=== PATIENT | male | born 1935 | race Caucasian/White ===

== ENCOUNTER 2019-05-14 09:57 | Outpatient (CLI) | payer MEDICARE ==
--- NOTE | 2019-05-14 13:03 | MRI ---
EXAM: MRI of the pelvis/prostate without and with contrast HISTORY: Prostate cancer COMPARISON: None TECHNIQUE: Multiplanar multisequence MR images were obtained of the pelvis without and with IV contra st. Evaluation of this exam was performed with a [employer] workstation. FINDINGS: Prostate volume: 102 cc Central gland: Severe hypertrophy of the central gland consistent with BPH. There is a 6 mm area of l ow T2 signal in the right peripheral zone of the prostate near the apex. Peripheral zone: There is restricted diffusion and low signal on the ADC map in the region where the 6 mm low T2 signal lesion is seen. Seminal vesicles: Intact without abnormality Neurovascular bundles: Intact. The right peripheral zone abnormality is near the right neurovascular bundle. Pelvic lymph nodes: No pelvic adenopathy Other visualized intrapelvic structures: Trabeculations are seen along the bladder wall likely from B PH. Osseous structures: No marrow signal abnormality IMPRESSION: PI-RADS Category 4-high likelihood that a clinically significant cancer is present.
[2019-05-14] MEDS ORDERED: Magnevist 469MG/ML 20 ML VIAL ONE (13:33)
== END 2019-05-14 09:58 | disposition home or self-care (01) ==
LOC: TBSIIMAG 09:57
PROVIDERS: ATTEND Radiology Radiation Oncology
DX: C61 Malignant neoplasm of prostate (principal)
CPT/HCPCS: 72197; 82565; A9579